=== PATIENT | male | born 2005 | race Hispanic/Latino ===

== ENCOUNTER 2025-02-08 20:40 | Emergency (ER) | payer SELFPAY ==
[2025-02-08 21:24] LABS: Hematocrit 45.0 % (39.0-52.0); Hemoglobin 15.8 g/dL (13.0-18.0); Mean Corp Hgb Conc. 35.1 g/dL (33.0-37.0); Mean Corpuscular Volume 84.4 fL (80.0-94.0); Nucleated Red Blood Cells % 0 % (-); Platelet Count 263 10^3/uL (130-400); Red Cell Dist. Width 12.7 % (11.5-14.5)
[2025-02-08 21:39] LABS: ALT (SGPT) 24 U/L (0-50); AST (SGOT) 22 U/L (17-59); Albumin 5.1 g/dl (3.5-5.0); Alkaline Phosphatase 103 U/L (38-126); Blood Urea Nitrogen 9 mg/dl (9-20); Calcium 9.9 mg/dl (8.4-10.2); Carbon Dioxide 26 mmol/L (22-30); Chloride 106 mmol/L (98-107); Glucose 98 mg/dl (70-99); Lipase 101 U/L (23-300); Potassium 4.1 mmol/L (3.5-5.1); Sodium 139 mmol/L (135-145); Total Protein 8.0 g/dl (6.3-8.2); eGFR > 60.00
[2025-02-08 23:16] VITALS: BP 134/87
[2025-02-08 23:20] VITALS: BMI 25.9
[2025-02-08] MEDS: OMNIPAQUE 50 ML PO (23:28)
[2025-02-08] MEDS: NSS 500 IV (23:40)
[2025-02-09 01:18] LABS: Urine Character Clear (Clear)
--- NOTE | 2025-02-09 01:28 | ED.GENMED ---
History of Present Illness
General
Chief Complaint: Abdominal Pain
Source: patient and wrecker operator
Exam Limitations: none
Time Seen by Provider: 02/08/25 23:03
History of Present Illness
History of Present Illness:
1 month of abdominal pain. Points to right lower quadrant. Comes and goes. No nausea or vomiting. Eating well. No fever.
Past History
Past History
ED Past Medical History: None
ED Past Surgical History: None
Review of Systems
Review of Systems
All Other Systems: Not applicable
Respiratory: Reports no symptoms
: Reports no symptoms
Phy Exam
Physical Exam
Physical Exam:
GENERAL: Alert and oriented in no apparent distress
EYE: Orbits normal.
NECK: Supple, no significant adenopathy.
ENT: Pharynx without erythema
CARDIAC: Regular rate and rhythm without any obvious murmurs.
LUNGS: Clear breath sounds,normal
ABDOMEN: Soft, mild right lower quadrant tenderness. No rebound or guarding no mass or hernia
NEUROLOGICAL: Alert and oriented , grossly non-focal
SKIN: Warm and dry, no rash or lesion, no discoloration, skin intact.
MUSCULOSKELETAL: No edema,no deformity.Good color
PSYCH: Normal and appropriate interaction.
Course
Orders/Labs/Results
Orders:
Orders
02/08/25 21:06
Complete Blood Count/With Diff Urgent
Comprehensive Metabolic Panel Urgent
Lipase Urgent
02/08/25 23:23
IV Insert/Care/Rem.- Treatment PRN
Urinalysis Reflex To Culture Urgent
Date Specimen was Collected: 02/08/25
Time Specimen was Collected: 23:26
0.9% Sodium Chloride 500 ml [Nss] 500 ml IV BOLUS
Iohexol [Omnipaque] See Protocol PO NOW STA
02/09/25
CT Abd/pel W Iv And Oral Contr Urgent
Reason For Exam: Ongoing right lower quadrant pain
Abnormal Lab Results
02/08/25
21:06
Albumin 5.1 H g/dl
(3.5-5.0)
02/08/25 21:06
02/08/25 21:06
Vital Signs
Initial and Last Documented VS:
Initial Vital Signs
Temp Pulse Resp Pulse Ox
98.7 F 88 16 98
02/08/25 20:52 02/08/25 20:52 02/08/25 20:52 02/08/25 20:52
Last Documented Vital Signs
Temp Pulse Resp BP Pulse Ox
98.8 F 78 14 119/77 99
02/09/25 03:18 02/09/25 03:18 02/09/25 03:18 02/09/25 03:18 02/09/25 03:18
MDM/Problems Addressed
Differential Diagnosis Includes:
Patient denies any testicle symptoms. Mild tenderness right lower quadrant. Labs are stable. With 1 month of Tums will do CT scan. If all stable discharged to follow-up
*Radiology
Radiology exam reviewed: radiology read reviewed (Negative CT)
*Pulse Oximetry
SaO2: 100
Oxygen Mode of Delivery: Room air
Patient hypoxic: no
*Critical Care Note
Total Time (30-74mins, 75-104mins- exclusive of procedures): Not Applicable
Update Note
Update Note:
No acute findings. Medically stable for discharge to follow-up
ED Attending Note
-
Portions of this chart may have been created with voice recognition software.� Occasional wrong word or��sound alike� substitutions may have occurred due to the inherent limitations of voice recognition software.
Discharge Plan
Departure
Patient Disposition: Home (Routine Discharge)
Date of Disposition: 02/09/25
Time of Disposition: 03:06
Patient with high blood pressure during this ER visit?: Yes
Discharge Problem:
Recurring right lower quadrant pain
Instructions: Abdominal Pain, BLOOD PRESSURE
Referrals:
[facility] [Outside] - Next open appointment
NONE,* [Family Provider, Internal Medicine]
Activity Restrictions/Additional Instructions:
I did not find a serious explanation for your pain
Follow-up with the clinic
Interventions
Interventions:
*Risk Screen - Suicide Last Done: 02/08/25 20:52
*General Assessment Last Done: 02/08/25 20:52
*Neglect/Abuse Screening Last Done: 02/08/25 20:52
*ED- Fall Risk Assessment Last Done: 02/08/25 20:52
*ED COVID-19 Vaccine History Last Done: 02/08/25 20:52
*Nursing Disposition Last Done: 02/09/25 03:15
[facility]-Rjxlvknsci Assessment Last Done: 02/09/25 03:15
Discharge Date and Time
Discharge Date/Time: 02/09/25 03:15
Print Language: BHUTANESE
[2025-02-09 03:18] VITALS: BP 119/77
== END 2025-02-09 03:15 | disposition home or self-care (01) ==
LOC: EMR 20:40
PROVIDERS: Emergency Medicine; EMERGENCY PHYSICIAN Emergency Medicine
DX: R10.31 Right lower quadrant pain (principal); R03.0 Elevated blood-pressure reading, without diagnosis of hypertension
CPT/HCPCS: 99284; 96360; 96361; 74177; 80053; 81003; 83690; 85025; Q9967